=== PATIENT | male | born 1960 | race Caucasian/White ===

== ENCOUNTER 2020-07-06 20:19 | Emergency (ER) | payer OTHER ==
[~2020-07-06] VITALS: Ht 175.3 cm; Wt 101.6 kg
[~2020-07-06 20:19] MED LIST: ASPI81CH PO; LISI5 PO; METF500 PO
[2020-07-06] MEDS ORDERED: CYCL10 PO (21:30)
== END 2020-07-06 23:49 | disposition home or self-care (01) ==
LOC: ER 20:19
DX: S81.011A Laceration without foreign body, right knee, initial encounter (principal); F17.200 Nicotine dependence, unspecified, uncomplicated; Z88.5 Allergy status to narcotic agent; Z91.040 Latex allergy status; Z79.82 Long term (current) use of aspirin; Z79.899 Other long term (current) drug therapy; Z79.84 Long term (current) use of oral hypoglycemic drugs; Z23 Encounter for immunization; W26.8XXA Contact with other sharp object(s), not elsewhere classified, initial encounter
CPT/HCPCS: 12002; 90471; 90714; 99282-25

== ENCOUNTER 2022-05-08 12:52 | Day surgery (SDC) | payer OTHER ==
[~2022-05-08] VITALS: Ht 180.3 cm; Wt 101.0 kg
[~2022-05-08 12:52] MED LIST changes: +CYCL10 PO
[2022-05-08] MEDS ORDERED: CELE100 (13:15)
[2022-05-08] MEDS ORDERED: HYDCHL25 (13:16)
[2022-05-08] MEDS ORDERED: ATOR10 (13:16)
== END 2022-05-08 15:45 | disposition home or self-care (01) ==
LOC: ORSCSDS 12:52
PROVIDERS: Internal Medicine Gastroenterology
PROC: 0DBL8ZX Excision of Transverse Colon, Via Natural or Artificial Opening Endoscopic, Diagnostic (ICD-10-PCS; principal; 2022-05-08 14:15)
PROC: 0DBP8ZX Excision of Rectum, Via Natural or Artificial Opening Endoscopic, Diagnostic (ICD-10-PCS; principal; 2022-05-08 14:15)
DX: Z12.11 Encounter for screening for malignant neoplasm of colon (principal); Z86.010 Personal history of colon polyps; D12.3 Benign neoplasm of transverse colon; K62.1 Rectal polyp; I10 Essential (primary) hypertension; G47.33 Obstructive sleep apnea (adult) (pediatric); E11.9 Type 2 diabetes mellitus without complications; Z79.899 Other long term (current) drug therapy; Z87.891 Personal history of nicotine dependence; Z79.84 Long term (current) use of oral hypoglycemic drugs
CPT/HCPCS: 82947; 88305; J2405; J2704